=== PATIENT | male | born 1960 | race Caucasian/White ===

== ENCOUNTER 2017-05-30 10:18 | Emergency (ER) | payer OTHER ==
[~2017-05-30] VITALS: Ht 170.2 cm; Wt 96.0 kg
[2017-05-30 11:44] LABS: HEMATOCRIT 44.1 % (38.0-50.0); MCH 32.6 PG (29.0-34.0); MCHC 35.4 G/DL (30.0-36.0); MCV 92.1 FL (86-99); MEAN PLAT.VOLUME 9.5 uM^3 (9.0-12.4); PLATELET COUNT 180 K/uL (156-360); RBC DIS.WIDTH-CV 11.5 % (11.8-14.6); RBC DIS.WIDTH-SD 38.8 % (39-53); RED BLOOD COUNT 4.79 M/uL (4.00-5.50); WHITE BLOOD COUNT 9.9 K/uL (4.1-10.2)
[2017-05-30 11:54] LABS: CHLORIDE 101 mEq/L (99-109); SODIUM 136 mEq/L (136-147)
[2017-05-30 11:55] LABS: GLUCOSE 174 mg/dL (70-99)
[2017-05-30 11:57] LABS: ANION GAP 11 MEQ/L (2-14)
[2017-05-30 11:59] LABS: GFR ESTIMATE (CALCULATED) > 59 mL/min/
[2017-05-30 12:00] LABS: UREA NITROGEN (BUN) 12 mg/dL (9-23)
[2017-05-30 12:04] LABS: TROP-I INTERPRETATION NEGATIVE; TROPONIN-I < 0.01 ng/mL (0.0-0.30)
[2017-05-30] MEDS ORDERED: LEVAQUIN750 MG PO (14:22)
[2017-05-30 14:52] VITALS: BP 136/81
== END 2017-05-30 14:57 | disposition home or self-care (01) ==
LOC: EME 10:18
PROVIDERS: Emergency Medicine
DX: J18.9 Pneumonia, unspecified organism (principal); R14.0 Abdominal distension (gaseous)
CPT/HCPCS: 71020; 71275; 80048; 83880; 84484; 85027; 85379; 93005; 94640; 99281; 99284

== ENCOUNTER 2018-02-16 14:36 | Emergency (ER) | payer BC ==
[~2018-02-16] VITALS: Ht 167.6 cm; Wt 79.3 kg
[~2018-02-16 14:36] MED LIST: LEVAQUIN750 MG PO
[2018-02-16 15:25] LABS: HEMATOCRIT 45.7 % (38.0-50.0); HEMOGLOBIN 16.6 G/DL (12.5-16.6); MCH 32.2 PG (29.0-34.0); MCHC 36.3 G/DL (30.0-36.0); MCV 88.6 FL (86-99); PLATELET COUNT 165 K/uL (156-360); RBC DIS.WIDTH-CV 11.2 % (11.8-14.6); RBC DIS.WIDTH-SD 35.8 % (39-53); RED BLOOD COUNT 5.16 M/uL (4.00-5.50); WHITE BLOOD COUNT 5.8 K/uL (4.1-10.2)
[2018-02-16 15:35] LABS: CHLORIDE 101 mEq/L (99-109); POTASSIUM 4.7 mEq/L (3.7-5.4); SODIUM 137 mEq/L (136-147)
[2018-02-16 15:36] LABS: GLUCOSE 379 mg/dL (70-99)
[2018-02-16 15:40] LABS: CREATININE 1.2 mg/dL (0.6-1.3); GFR ESTIMATE (CALCULATED) > 59 mL/min/ (58.99-99999)
[2018-02-16 15:41] LABS: UREA NITROGEN (BUN) 10 mg/dL (9-23)
[2018-02-16 16:19] LABS: APPEARANCE CLEAR ((CLEAR)); BILIRUBIN NEGATIVE; BLOOD NEGATIVE; COLOR YELLOW ((YELLOW)); GLUCOSE (STRIP) >=500; KETONES 20; LEUKOCYTES NEGATIVE; NITRITE NEGATIVE; PROTEIN (STRIP) 30; SPECIFIC GRAVITY 1.042 (1.000-1.030); UCUL ADDED? NO; UROBILINOGEN 0.2 MG/DL (0.2-1.0)
[2018-02-16] MEDS ORDERED: METFORMIN HCL500 MG PO (17:00)
[2018-02-16] MEDS ORDERED: GLIMEPIRIDE2 MG PO (17:00)
[2018-02-16 18:08] VITALS: BP 125/75
[2018-02-17 10:19] LABS: HEMOGLOBIN A1c (GLYCOHEMOGLOB) 14.9 % (Below 5.7)
== END 2018-02-16 18:30 | disposition home or self-care (01) ==
LOC: EME 14:36 → EXP 14:36
PROVIDERS: Nurse Practitioner Family
DX: E11.65 Type 2 diabetes mellitus with hyperglycemia (principal); E78.5 Hyperlipidemia, unspecified; Z83.3 Family history of diabetes mellitus; Z88.2 Allergy status to sulfonamides
CPT/HCPCS: 80048; 81003; 82948; 83036; 85027; 99281; 99284